=== PATIENT | male | born 2000 | race Caucasian/White ===

== ENCOUNTER 2023-05-25 10:30 | Outpatient (CLI) | payer OTHER, SELFPAY ==
--- NOTE | 2023-05-25 10:50 | ECHO_ITS ---
Patient Info Name: Todd Contreras Age: 23 years : 2000 Gender: Male Ht: 71 in Wt: 130 lbs BSA: 1.70 m2 HR: 91 bpm BP: 123 / 93 mmHg Heart Rhythm: Sinus Rhythm Technical Quality: Good Exam Date: 05/25/2023 10:58 AM Exam Location: [facility] Patient Status: Outpatient Admit Date: 05/25/2023 Staff Ordering Physician: Bernabe Ricardo MD It Trainer: Joe Arceo RDCS Attending Provider: Bernabe Ricardo MD Referring Physician: Haleigh BLACK; Exam Type: CA echo doppler color flow Study Info Indications - elevated HR/cardiac murmur Complete two-dimensional, color flow and Doppler transthoracic echocardiogram is performed. Summary 1. Complete two-dimensional, color flow and Doppler transthoracic echocardiogram is performed. 2. Left ventricular chamber dimension is normal. 3. Left ventricular systolic function is normal, estimated at 60-65%. 4. The left ventricular diastolic function is normal. 5. There is trace mitral valve regurgitation. 6. There is trace tricuspid valve regurgitation. 7. No pulmonary hypertension, estimated pulmonary arterial systolic pressure is 21 mmHg. Left Ventricle Tissue doppler E/e' is not performed. Left ventricular chamber dimension is normal. Left ventricular systolic function is normal, estimated at 60-65%. The left ventricular diastolic function is normal. Right Ventricle Right ventricular chamber dimension is normal. Right ventricular systolic function is normal. Left Atria Left atrial chamber dimension is normal. Right Atria Right atrial chamber dimension is normal. Aortic Valve The aortic valve is trileaflet. There is no aortic valve stenosis. There is no aortic valve regurgitation. Pulmonic Valve There is no pulmonic regurgitation. Mitral Valve There is no mitral valve stenosis. There is trace mitral valve regurgitation. Tricuspid Valve There is trace tricuspid valve regurgitation. No pulmonary hypertension, estimated pulmonary arterial systolic pressure is 21 mmHg. Pericardium/Pleural There is no pericardial effusion. Inferior Vena Cava Normal inferior vena cava with >50% collapse upon inspiration consistent with normal right atrial pressure, 5 mmHg. Aorta The aortic root size at the sinus of Valsalva is normal. Left Ventricular Outflow Tract Name Value Normal LVOT Doppler LVOT Peak Gradient 1 mmHg LVOT Mean Gradient 1 mmHg LVOT VTI 14 cm LVOT VTI/AV VTI Ratio 0.8 Pulmonic Valve Name Value Normal RVOT Doppler RVOT Peak Gradient 3 mmHg PV Doppler PV Peak Gradient 3 mmHg Mitral Valve Name Value Normal MV Doppler
--- NOTE | 2023-05-25 11:36 | ECG_ITS ---
Measurements Intervals [place] Rate: 72 P: 69 SD: 139 QRS: 77 QRSD: 80 T: 63 QT: 354 QTc: 388 Interpretive Statements SINUS RHYTHM ST ELEVATION, EARLY REPOLARIZATION OTHERWISE NORMAL ECG NO PREVIOUS ECG AVAILABLE FOR COMPARISON Electronically Signed On 05-25-2023 12:42:35 CDT by Jose J Esquivel M.D.
== END 2023-05-25 10:31 | disposition home or self-care (01) ==
PROVIDERS: PCP Emergency Medicine; Visit Provider Emergency Medicine
DX: R01.1 Cardiac murmur, unspecified (principal); R00.0 Tachycardia, unspecified
CPT/HCPCS: 93005; 93306

== ENCOUNTER 2023-07-17 15:41 | Emergency (ER) | payer OTHER, SELFPAY ==
[2023-07-17 15:57] VITALS: BP 126/87; PULSE 94; RESP 14; TEMP 36.6; O2SAT 100
--- NOTE | 2023-07-17 16:32 | ED.HEATRA ---
HPI - Head Injury General Chief complaint: Head Injury Stated complaint: hit head yesterday Time Seen by Provider: 07/17/23 16:14 History of Present Illness HPI Narrative: This is a 23-year-old male, past history of acne, who presents the emergency department complaining of nausea and headache after hitting his head yesterday. The patient states he was bending forward to pick something from the floor, when he struck the top of his head on a metal counter. He denies loss of consciousness but developed a throbbing, 3/10, global headache associated with nausea. He denies vomiting, loss of vision, weakness/numbness, chest pain, shortness of breath or palpitations. Related Data Home Medications Medication Instructions Recorded Confirmed adapalene 0.3 %-benzoyl peroxide 1 applic topical DAILY 12/18/19 04/26/23 2.5 % topical gel with pump (Epiduo Forte) doxycycline monohydrate 40 mg 40 mg PO DAILY 12/18/19 04/26/23 capsule,immediate - delay release (Oracea) sulfacetamide sodium-sulfur 8 %-4 1 applic topical DAILY 12/18/19 04/26/23 % topical suspension minocycline 4 % topical foam 1 applic topical 04/12/23 04/26/23 (Amzeeq) Allergies Allergy/AdvReac Type Severity Reaction Status Date / Time No Known Allergies Allergy Verified 04/26/23 13:38 Review of Systems Review of Systems: CONSTITUTIONAL: Denies fever, chills, or sweats. CARDIOVASCULAR: Denies chest pain, palpitations, or edema. RESPIRATORY: Denies cough or dyspnea. GASTROINTESTINAL: Nausea denies abdominal pain, vomiting, or diarrhea. GENITOURINARY: Denies dysuria or hematuria. SKIN: Denies rash or itching. MUSCULOSKELETAL: Denies back pain, joint pain, or myalgia. NEUROLOGIC: Headache denies numbness, dizziness, or weakness. PSYCHIATRIC: Denies anxiety or depression. [facility] Past Medical History Medical History Anxiety Surgical History Surgical History H/O colonoscopy (~11/2017) Family History Family History Grandparent Family history of lung cancer Social History Social History Smoking status: Never smoker Alcohol intake: never Substance use: never Lack of Transportation: No Lack of Food: Never True Current Housing: I Have Housing Concerned About Future Housing: No Difficulty Paying Gas/Electric Bills: No Difficulty Paying for Meds: No Currently Unemployed: No Education: High School Diploma/GED Difficulty w/ Childcare or Family Care: No Exam Narrative: GENERAL: Well-developed, well-nourished, and in no acute distress. HEAD: Normocephalic, a 0.5 cm abrasion is noted to the top of the central scalp. EYES: PERRLA and EOMI. CHEST: Clear to auscultation. No respiratory distress. No wheezes rales or rhonchi HEART: Regular rate and rhythm. No murmur heard. Normal peripheral pulses. ABDOMEN: Soft, nontender, nondistended, normal active bowel sounds. EXTREMITIES: Normal range of motion. No edema. SKIN: Warm, dry, no rash. NEURO: Alert and oriented x3. Strength 5/5 in all extremities, sensation intact bilaterally, no noted ataxia, cranial nerves II through XII intact PSYCH: Normal mood and affect. Course Course Emergency Course: 16:33 - The patient is neurologically intact on examination. I suspect a concussion. Will discharge with antiemetics and recommendation to follow-up with his primary care doctor. Discussed return and emergency precautions including signs/symptoms of intracranial hemorrhage and stroke. The patient voiced understanding and is comfortable with the plan. All questions answered to his satisfaction. Vital Signs Vital signs: Vital Signs Temperature 97.8 F 07/17/23 15:57 Pulse Rate 94 07/17/23 15:57 Respiratory Rate 14 07/17/23 15:57 Blood Pressu
== END 2023-07-17 16:50 | disposition home or self-care (01) ==
PROVIDERS: Emergency Provider Preventive Medicine Aerospace Medicine; PCP Emergency Medicine
DX: S06.0X0A Concussion without loss of consciousness, initial encounter (principal); S00.01XA Abrasion of scalp, initial encounter; F41.9 Anxiety disorder, unspecified; W22.09XA Striking against other stationary object, initial encounter
CPT/HCPCS: 99283